=== PATIENT | female | born 2000 | race Caucasian/White ===

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

== ENCOUNTER 2024-07-15 17:18 | Emergency (ER) | payer SELFPAY ==
[~2024-07-15] VITALS: Ht 157.5 cm; Wt 103.2 kg
[2024-07-15 17:41] VITALS: BP 119/76; PULSE 109; RESP 16; TEMP 98.9; O2SAT 99
== END 2024-07-15 19:01 | disposition left against medical advice (07) ==
LOC: ER 17:23
DX: R10.2 Pelvic and perineal pain (principal); Z53.21 Procedure and treatment not carried out due to patient leaving prior to being seen by health care provider

== ENCOUNTER 2024-11-01 06:06 | Emergency (ER) | payer MEDICAID ==
[~2024-11-01] VITALS: Ht 157.5 cm; Wt 80.0 kg
[2024-11-01 06:14] VITALS: BP 122/73; PULSE 91; RESP 18; TEMP 98.5; O2SAT 98
== END 2024-11-01 06:51 | disposition left against medical advice (07) ==
LOC: EDBD 06:06 → ER 06:06
DX: O21.9 Vomiting of pregnancy, unspecified (principal); Z3A.16 16 weeks gestation of pregnancy; Z53.21 Procedure and treatment not carried out due to patient leaving prior to being seen by health care provider